=== PATIENT | female | born 1965 | race Asian ===

== ENCOUNTER 2016-10-17 16:56 | Emergency (ER) | payer OTHER ==
[~2016-10-17] VITALS: Ht 154.9 cm; Wt 65.0 kg
[~2016-10-17 16:56] MED LIST: FERR240T6 PO; HYDR25TA PO; LISI-618 PO; LORA10TA7 PO; OMEP10SU PO; SIMV10TA6 PO
[2016-10-17 17:22] LABS: GLUCOSE,POINT OF CARE 115 MG/DL (70-110)
[2016-10-17 17:27] LABS: BASOPHILS % (AUTO) 0.1 % (0.0-2.0); EOSINOPHILS % (AUTO) 0.5 % (1.0-6.0); HEMATOCRIT 42.8 % (36-46); HEMOGLOBIN 14.3 g/dL (12.0-16.0); LYMPHOCYTES # (AUTO) 1.8 K/uL (1.0-4.8); LYMPHOCYTES % (AUTO) 12.1 % (22.0-44.0); MEAN CORPUSCULAR HEMOGLOBIN 29.2 pg (26.0-34.0); MEAN CORPUSCULAR HGB CONC 33.5 G/dL (31.0-37.0); MEAN CORPUSCULAR VOLUME 87 fL (80-100); MONOCYTES # (AUTO) 0.4 K/uL (0.1-1.0); MONOCYTES % (AUTO) 2.6 % (2.0-9.0); NEUTROPHILS % (AUTO) 84.7 % (40.0-70.0); PLATELET COUNT (AUTO) 249 K/uL (150-450); RED BLOOD CELL COUNT(AUTO) 4.91 MIL/uL (4.00-5.20); RED CELL DISTRIBUTION WIDTH 12.8 % (11.5-14.5); WHITE BLOOD COUNT (AUTO) 15.3 K/uL (4.5-11.0)
[2016-10-17] MEDS ORDERED: 0.9% SODIUM CHLORIDE 10 ML SYRINGE IVP PRN (17:30)
[2016-10-17 17:44] LABS: PROTHROMBIN TIME 10.1 SEC (9.4-11.6)
[2016-10-17 17:58] LABS: B-TYPE NATRIURETIC PEPTIDE 21 pg/mL (0-100)
[2016-10-17 18:07] LABS: ALANINE AMINOTRANSFERASE 26 U/L (12-78); ALBUMIN 3.8 g/dL (3.4-5.0); ANION GAP 10 mmol/L (8-16); ASPARTATE AMINOTRANSFERASE 19 U/L (15-37); BILIRUBIN,TOTAL 0.5 mg/dL (0.1-1.0); CALCIUM, TOTAL 8.9 mg/dL (8.8-10.5); CARBON DIOXIDE 30 mmol/L (22-29); CHLORIDE 101 mmol/L (98-107); CREATINE KINASE, TOTAL 96 U/L (26-192); CREATININE 0.98 mg/dL (0.60-1.30); GLOMERULAR FILTR. RATE CALC 60 mL/min (>60); SODIUM SERUM 141 mmol/L (136-145); TOTAL PROTEIN, SERUM 8.3 g/dL (6.4-8.2); UREA NITROGEN, BLOOD 12 mg/dL (7-18)
[2016-10-17 18:13] LABS: CREATINE KINASE MB < 0.5 ng/mL (0-5); POTASSIUM 2.9 mmol/L (3.5-5.1)
[2016-10-17] MEDS ORDERED: POTASSIUM CHLORIDE 20 MEQ ER TABLET PO ONE (19:15)
[2016-10-17 19:28] LABS: APPEARANCE,URINE CLEAR (CLEAR); GLUCOSE, URINE (UA) NEGATIVE (NEGATIVE); KETONES,URINE NEGATIVE (NEGATIVE); LEUKOCYTE ESTERASE ,URINE NEGATIVE (NEGATIVE); PH,URINE 7.5 (5.0-8.0); PROTEIN,URINE NEGATIVE (NEGATIVE)
[2016-10-17 19:32] LABS: ADD UA MICROSCOPIC YES; OCCULT BLOOD,URINE MODERATE (NEGATIVE); RBC,URINE 26-50 /HPF (0-2); SQUAMOUS EPITHELIAL CELL,UR Few /LPF (None Seen); WBC,URINE 0-2 /HPF (0-5)
[2016-10-17 20:18] VITALS: BP 135/80
== END 2016-10-17 20:30 | disposition home or self-care (01) ==
LOC: EMS 16:57
DX: N39.0 Urinary tract infection, site not specified (principal); B34.9 Viral infection, unspecified; R55 Syncope and collapse; I10 Essential (primary) hypertension; I63.9 Cerebral infarction, unspecified; Z88.0 Allergy status to penicillin; Z88.1 Allergy status to other antibiotic agents
CPT/HCPCS: 82962; 93005; 99285

== ENCOUNTER 2020-04-04 06:29 | Day surgery (SDC) | payer OTHER ==
[~2020-04-04] VITALS: Ht 152.4 cm; Wt 61.8 kg
[~2020-04-04 06:29] MED LIST changes: +ALLO100T50 PO; +ASPI-728 PO; +CLOP-31 PO; +COLC0.6T73 PO; +FAMO20 PO; -FERR240T6 PO; +GABA-1216 PO; -LORA10TA7 PO; -OMEP10SU PO; -SIMV10TA6 PO; +SIMV10TA97 PO; +SODIUM CHLORIDE 0.9% 1,000 ML ONE; +TRIA454O5 TP
[2020-04-04] MEDS ORDERED: SODIUM CHLORIDE 0.9% 1,000 ML IV ONE (06:30)
[2020-04-04] MEDS ORDERED: MIDAZOLAM HCL 2 MG/2 ML VIAL ONE (07:50)
[2020-04-04] MEDS ORDERED: FentaNYL CITRATE-PF 100 MCG/2 ML VIAL ONE (07:50)
[2020-04-04] MEDS ORDERED: MethylPREDNISolone SOD SUCC 125 MG/2 ML VIAL IVP ONE (08:45)
[2020-04-04] MEDS ORDERED: MethylPREDNISolone SOD SUCC 125 MG/2 ML VIAL ONE (09:08)
[2020-04-04] MEDS ORDERED: LIDOCAINE 2% 30 ML JELLY ONE (17:13)
[2020-04-04] MEDS ORDERED: BENZOCAINE 20% 50 MCG/SPRAY 57 GM ONE (17:13)
[2020-04-04] MEDS ORDERED: ALBUTEROL SULFATE 2.5 MG/0.5 ML NEB SOLUTION NEB ONE (17:13)
[2020-04-04] MEDS ORDERED: LIDOCAINE 4% 50 ML SOLUTION ONE (17:13)
[2020-04-04] MEDS ORDERED: OXYGEN THERAPY IH SCH (20:00)
== END 2020-04-04 10:20 | disposition home or self-care (01) ==
LOC: SURGERY 06:29
PROVIDERS: ATTEND Internal Medicine Critical Care Medicine
DX: B37.0 Candidal stomatitis (principal); J98.4 Other disorders of lung; M19.90 Unspecified osteoarthritis, unspecified site; E78.00 Pure hypercholesterolemia, unspecified; Z86.73 Personal history of transient ischemic attack (TIA), and cerebral infarction without residual deficits
CPT/HCPCS: 31623; 31624; 71045; 87015; 87070; 87077; 87101; 87205; 87206; 87220; 87635; 88108; 88312; J2250; J2930; J3010; J7030; J7613; Z7610

== ENCOUNTER 2022-10-18 18:24 | Inpatient (IN) | payer MEDICARE, OTHER ==
[~2022-10-18] VITALS: Ht 157.5 cm; Wt 61.4 kg
[~2022-10-18 18:24] MED LIST changes: +ASPI-1450 PO; -ASPI-728 PO; -CLOP-31 PO; +CLOP75TA60 PO; -LISI-618 PO; +LISI20TA24 PO; -SODIUM CHLORIDE 0.9% 1,000 ML ONE
[2022-10-18 18:43] LABS: COVID AG,FIA SOURCE NASAL SWAB
[2022-10-18] MEDS ORDERED: ACETAMINOPHEN 325 MG TABLET PO ONE (21:15)
[2022-10-18 21:29] LABS: BASOPHILS % (AUTO) 0.4 % (0.0-2.0); EOSINOPHILS % (AUTO) 0 % (1.0-6.0); HEMATOCRIT 43.5 % (36-46); HEMOGLOBIN 14.9 g/dL (12.0-16.0); LYMPHOCYTES # (AUTO) 1.6 K/uL (1.0-4.8); LYMPHOCYTES % (AUTO) 16.6 % (22.0-44.0); MEAN CORPUSCULAR HEMOGLOBIN 30.4 pg (26.0-34.0); MEAN CORPUSCULAR HGB CONC 34.2 G/dL (31.0-37.0); MEAN CORPUSCULAR VOLUME 89 fL (80-100); MONOCYTES # (AUTO) 0.7 K/uL (0.1-1.0); MONOCYTES % (AUTO) 6.9 % (2.0-9.0); NEUTROPHILS # (AUTO) 7.4 K/uL (1.8-7.7); NEUTROPHILS % (AUTO) 76.1 % (40.0-70.0); PLATELET COUNT (AUTO) 153 K/uL (150-450); RED CELL DISTRIBUTION WIDTH 13.8 % (11.5-14.5)
[2022-10-18 21:31] LABS: CALCIUM, TOTAL 8.5 mg/dL (8.8-10.5); CREATININE 1.22 mg/dL (0.60-1.30); POTASSIUM 3.5 mmol/L (3.5-5.1)
[2022-10-18 21:37] LABS: ALBUMIN 4.1 g/dL (3.4-5.0); BILIRUBIN,TOTAL 0.6 mg/dL (0.1-1.0); TOTAL PROTEIN, SERUM 8.9 g/dL (6.4-8.2)
[2022-10-18] MEDS ORDERED: ONDANSETRON HCL 4 MG/2 ML VIAL IVP PRN (22:45)
[2022-10-18] MEDS: HEPARIN SODIUM,PORCINE 5,000 UNITS/ML VIAL SQ SCH (23:10)
[2022-10-18] MEDS ORDERED: SODIUM CHLORIDE 0.9% 1,000 ML IV ONE (23:30)
[2022-10-19 04:15] VITALS: BP 113/63
[2022-10-19 07:28] VITALS: BP 110/59
[2022-10-19 08:03] LABS: BASOPHILS % (AUTO) 0.4 % (0.0-2.0); EOSINOPHILS % (AUTO) 0 % (1.0-6.0); HEMATOCRIT 39.8 % (36-46); HEMOGLOBIN 13.5 g/dL (12.0-16.0); LYMPHOCYTES # (AUTO) 1.9 K/uL (1.0-4.8); LYMPHOCYTES % (AUTO) 24.5 % (22.0-44.0); MEAN CORPUSCULAR HEMOGLOBIN 30.1 pg (26.0-34.0); MEAN CORPUSCULAR HGB CONC 33.8 G/dL (31.0-37.0); MEAN CORPUSCULAR VOLUME 89 fL (80-100); MONOCYTES # (AUTO) 0.6 K/uL (0.1-1.0); MONOCYTES % (AUTO) 8.4 % (2.0-9.0); NEUTROPHILS # (AUTO) 5.1 K/uL (1.8-7.7); NEUTROPHILS % (AUTO) 66.7 % (40.0-70.0); PLATELET COUNT (AUTO) 143 K/uL (150-450); RED BLOOD CELL COUNT(AUTO) 4.48 MIL/uL (4.00-5.20); RED CELL DISTRIBUTION WIDTH 13.7 % (11.5-14.5)
[2022-10-19 08:05] LABS: CALCIUM, TOTAL 8.1 mg/dL (8.8-10.5); CREATININE 1.04 mg/dL (0.60-1.30); MAGNESIUM 2.4 mg/dL (1.80-2.40); POTASSIUM 3.1 mmol/L (3.5-5.1)
[2022-10-19] MEDS: COLCHICINE 0.6 MG TABLET PO SCH (08:30)
[2022-10-19] MEDS: GABAPENTIN 100 MG CAPSULE PO SCH (08:31)
[2022-10-19] MEDS: HEPARIN SODIUM,PORCINE 5,000 UNITS/ML VIAL SQ SCH ×3 (08:31→23:56)
[2022-10-19] MEDS: FAMOTIDINE 20 MG TABLET PO SCH (08:31)
[2022-10-19] MEDS: SIMVASTATIN 20 MG TABLET PO SCH (08:32)
[2022-10-19] MEDS: ACETAMINOPHEN 325 MG TABLET PO PRN ×2 (08:32→23:59)
[2022-10-19] MEDS: ALLOPURINOL 100 MG TABLET PO SCH (08:32)
[2022-10-19] MEDS: LISINOPRIL 20 MG TABLET PO SCH (08:32)
[2022-10-19] MEDS: CLOPIDOGREL BISULFATE 75 MG TABLET PO SCH (08:32)
[2022-10-19] MEDS: ASPIRIN 81 MG CHEWABLE TABLET PO SCH (08:32)
[2022-10-19] MEDS: TRIAMCINOLONE 0.025% 15 GM OINTMENT TP SCH (08:34)
[2022-10-19] MEDS ORDERED: REMDESIVIR 200 MG in SODIUM CHLORIDE 0.9% 250 ML IV ONE (12:30)
[2022-10-19] MEDS ORDERED: FLUT16H NASAL (12:32)
[2022-10-19] MEDS ORDERED: AMLO2.5T29 PO (12:32)
[2022-10-19] MEDS ORDERED: ASPI-1522 PO (12:32)
[2022-10-19] MEDS ORDERED: SIMV-260 PO (12:32)
[2022-10-19] MEDS ORDERED: CLOB15CR41 TP (12:32)
[2022-10-19] MEDS ORDERED: GABA-1181 PO (12:32)
[2022-10-19 15:33] VITALS: BP 109/67
[2022-10-19] MEDS ORDERED: POTASSIUM CHLORIDE 20 MEQ ER TABLET PO ONE (16:00)
[2022-10-19] MEDS: BENZONATATE 100 MG CAPSULE PO PRN (20:35)
[2022-10-19 20:55] VITALS: BP 121/73
[2022-10-19 22:42] LABS: INFLUENZA TYPE A NEGATIVE FOR TYPE A (NEGATIVE); INFLUENZA TYPE B NEGATIVE FOR TYPE B (NEGATIVE)
[2022-10-20 04:58] VITALS: BP 117/68
[2022-10-20] MEDS: HEPARIN SODIUM,PORCINE 5,000 UNITS/ML VIAL SQ SCH ×4 (08:00→23:24)
[2022-10-20 08:06] VITALS: BP 103/69
[2022-10-20 08:14] LABS: BASOPHILS % (AUTO) 0.4 % (0.0-2.0); EOSINOPHILS % (AUTO) 0.1 % (1.0-6.0); HEMOGLOBIN 13.9 g/dL (12.0-16.0); LYMPHOCYTES # (AUTO) 2.1 K/uL (1.0-4.8); LYMPHOCYTES % (AUTO) 28.1 % (22.0-44.0); MEAN CORPUSCULAR HEMOGLOBIN 30.7 pg (26.0-34.0); MEAN CORPUSCULAR HGB CONC 34.7 G/dL (31.0-37.0); MEAN CORPUSCULAR VOLUME 89 fL (80-100); MONOCYTES # (AUTO) 0.5 K/uL (0.1-1.0); MONOCYTES % (AUTO) 7.3 % (2.0-9.0); NEUTROPHILS # (AUTO) 4.8 K/uL (1.8-7.7); NEUTROPHILS % (AUTO) 64.1 % (40.0-70.0); PLATELET COUNT (AUTO) 146 K/uL (150-450); RED BLOOD CELL COUNT(AUTO) 4.51 MIL/uL (4.00-5.20); RED CELL DISTRIBUTION WIDTH 13.8 % (11.5-14.5)
[2022-10-20 08:22] LABS: CALCIUM, TOTAL 8.1 mg/dL (8.8-10.5); CREATININE 0.99 mg/dL (0.60-1.30); POTASSIUM 3.8 mmol/L (3.5-5.1)
[2022-10-20] MEDS: GABAPENTIN 100 MG CAPSULE PO SCH (09:18)
[2022-10-20] MEDS: CLOPIDOGREL BISULFATE 75 MG TABLET PO SCH (09:19)
[2022-10-20] MEDS: LISINOPRIL 20 MG TABLET PO SCH (09:19)
[2022-10-20] MEDS: ASPIRIN 81 MG CHEWABLE TABLET PO SCH (09:19)
[2022-10-20] MEDS: DEXAMETHASONE 4 MG TABLET PO SCH (09:19)
[2022-10-20] MEDS: SIMVASTATIN 20 MG TABLET PO SCH (09:20)
[2022-10-20] MEDS: COLCHICINE 0.6 MG TABLET PO SCH (09:20)
[2022-10-20] MEDS: FAMOTIDINE 20 MG TABLET PO SCH (09:20)
[2022-10-20] MEDS: ALLOPURINOL 100 MG TABLET PO SCH (09:20)
[2022-10-20] MEDS: BENZONATATE 100 MG CAPSULE PO PRN ×2 (09:28→21:10)
[2022-10-20] MEDS: TRIAMCINOLONE 0.025% 15 GM OINTMENT TP SCH (09:31)
[2022-10-20] MEDS: REMDESIVIR 100 MG in SODIUM CHLORIDE 0.9% 250 ML IV SCH (14:16)
[2022-10-20 16:10] VITALS: BP 102/52
[2022-10-20 20:01] VITALS: BP 126/72
[2022-10-21 04:08] VITALS: BP 104/65
[2022-10-21 06:52] LABS: BASOPHILS % (AUTO) 0.2 % (0.0-2.0); EOSINOPHILS % (AUTO) 0 % (1.0-6.0); HEMATOCRIT 40.6 % (36-46); HEMOGLOBIN 14.1 g/dL (12.0-16.0); LYMPHOCYTES # (AUTO) 1.2 K/uL (1.0-4.8); LYMPHOCYTES % (AUTO) 9.9 % (22.0-44.0); MEAN CORPUSCULAR HGB CONC 34.8 G/dL (31.0-37.0); MEAN CORPUSCULAR VOLUME 89 fL (80-100); MONOCYTES # (AUTO) 0.5 K/uL (0.1-1.0); MONOCYTES % (AUTO) 4.3 % (2.0-9.0); NEUTROPHILS # (AUTO) 10.1 K/uL (1.8-7.7); PLATELET COUNT (AUTO) 161 K/uL (150-450); RED BLOOD CELL COUNT(AUTO) 4.56 MIL/uL (4.00-5.20); RED CELL DISTRIBUTION WIDTH 13.2 % (11.5-14.5)
[2022-10-21 07:11] LABS: NEUTROPHILS % (AUTO) 85.6 % (40.0-70.0)
[2022-10-21 07:31] LABS: ALANINE AMINOTRANSFERASE 69 U/L (12-78); ALBUMIN 3.4 g/dL (3.4-5.0); ALKALINE PHOSPHATASE 66 U/L (46-116); ANION GAP 10 mmol/L (8-16); ASPARTATE AMINOTRANSFERASE 57 U/L (15-37); BILIRUBIN,TOTAL 0.2 mg/dL (0.1-1.0); CALCIUM, TOTAL 8.8 mg/dL (8.8-10.5); CARBON DIOXIDE 24 mmol/L (22-29); CHLORIDE 104 mmol/L (98-107); CREATININE 0.92 mg/dL (0.60-1.30); GLOMERULAR FILTR. RATE CALC > 60 mL/min (>60); GLUCOSE,RANDOM 145 mg/dL (70-110); SODIUM SERUM 138 mmol/L (136-145); TOTAL PROTEIN, SERUM 8.2 g/dL (6.4-8.2); UREA NITROGEN, BLOOD 19 mg/dL (7-18)
[2022-10-21] MEDS: HEPARIN SODIUM,PORCINE 5,000 UNITS/ML VIAL SQ SCH ×2 (08:00→16:00)
[2022-10-21 08:49] VITALS: BP 116/71
[2022-10-21] MEDS: ALLOPURINOL 100 MG TABLET PO SCH (09:02)
[2022-10-21] MEDS: COLCHICINE 0.6 MG TABLET PO SCH (09:02)
[2022-10-21] MEDS: ASPIRIN 81 MG CHEWABLE TABLET PO SCH (09:02)
[2022-10-21] MEDS: DEXAMETHASONE 4 MG TABLET PO SCH (09:02)
[2022-10-21] MEDS: CLOPIDOGREL BISULFATE 75 MG TABLET PO SCH (09:03)
[2022-10-21] MEDS: SIMVASTATIN 20 MG TABLET PO SCH (09:03)
[2022-10-21] MEDS: GABAPENTIN 100 MG CAPSULE PO SCH (09:03)
[2022-10-21] MEDS: LISINOPRIL 20 MG TABLET PO SCH (09:03)
[2022-10-21] MEDS: TRIAMCINOLONE 0.025% 15 GM OINTMENT TP SCH (09:10)
[2022-10-21] MEDS: FAMOTIDINE 20 MG TABLET PO SCH (11:29)
[2022-10-21] MEDS: REMDESIVIR 100 MG in SODIUM CHLORIDE 0.9% 250 ML IV SCH (13:54)
[2022-10-21 16:59] VITALS: BP 112/78
[2022-10-21 20:44] VITALS: BP 121/78
[2022-10-21] MEDS: ACETAMINOPHEN 325 MG TABLET PO PRN (20:47)
[2022-10-22 06:13] VITALS: BP 139/80
[2022-10-22 07:59] LABS: BASOPHILS % (AUTO) 0.1 % (0.0-2.0); EOSINOPHILS % (AUTO) 0 % (1.0-6.0); HEMATOCRIT 37.7 % (36-46); LYMPHOCYTES # (AUTO) 1.4 K/uL (1.0-4.8); MEAN CORPUSCULAR HEMOGLOBIN 30.6 pg (26.0-34.0); MEAN CORPUSCULAR HGB CONC 34.4 G/dL (31.0-37.0); MEAN CORPUSCULAR VOLUME 89 fL (80-100); MONOCYTES # (AUTO) 0.5 K/uL (0.1-1.0); MONOCYTES % (AUTO) 3.2 % (2.0-9.0); NEUTROPHILS # (AUTO) 15.3 K/uL (1.8-7.7); PLATELET COUNT (AUTO) 184 K/uL (150-450); RED BLOOD CELL COUNT(AUTO) 4.24 MIL/uL (4.00-5.20); RED CELL DISTRIBUTION WIDTH 13.6 % (11.5-14.5)
[2022-10-22] MEDS: HEPARIN SODIUM,PORCINE 5,000 UNITS/ML VIAL SQ SCH ×3 (08:00→16:00)
[2022-10-22 08:05] LABS: ALANINE AMINOTRANSFERASE 68 U/L (12-78); ALBUMIN 3.4 g/dL (3.4-5.0); ALKALINE PHOSPHATASE 62 U/L (46-116); ANION GAP 10 mmol/L (8-16); ASPARTATE AMINOTRANSFERASE 46 U/L (15-37); BILIRUBIN,TOTAL 0.2 mg/dL (0.1-1.0); CALCIUM, TOTAL 8.5 mg/dL (8.8-10.5); CARBON DIOXIDE 22 mmol/L (22-29); CHLORIDE 105 mmol/L (98-107); CREATININE 0.87 mg/dL (0.60-1.30); GLOMERULAR FILTR. RATE CALC > 60 mL/min (>60); GLUCOSE,RANDOM 134 mg/dL (70-110); POTASSIUM 4.1 mmol/L (3.5-5.1); SODIUM SERUM 137 mmol/L (136-145); TOTAL PROTEIN, SERUM 7.5 g/dL (6.4-8.2); UREA NITROGEN, BLOOD 22 mg/dL (7-18)
[2022-10-22 08:28] LABS: NEUTROPHILS % (AUTO) 88.7 % (40.0-70.0)
[2022-10-22 08:35] VITALS: BP 131/56
[2022-10-22] MEDS: FAMOTIDINE 20 MG TABLET PO SCH (08:56)
[2022-10-22] MEDS: DEXAMETHASONE 4 MG TABLET PO SCH (08:57)
[2022-10-22] MEDS: GABAPENTIN 100 MG CAPSULE PO SCH (08:58)
[2022-10-22] MEDS: ASPIRIN 81 MG CHEWABLE TABLET PO SCH (08:58)
[2022-10-22] MEDS: CLOPIDOGREL BISULFATE 75 MG TABLET PO SCH (08:58)
[2022-10-22] MEDS: ALLOPURINOL 100 MG TABLET PO SCH (08:58)
[2022-10-22] MEDS: LISINOPRIL 20 MG TABLET PO SCH (08:58)
[2022-10-22] MEDS: COLCHICINE 0.6 MG TABLET PO SCH (08:58)
[2022-10-22] MEDS: SIMVASTATIN 20 MG TABLET PO SCH (08:58)
[2022-10-22] MEDS: TRIAMCINOLONE 0.025% 15 GM OINTMENT TP SCH (08:58)
[2022-10-22] MEDS: REMDESIVIR 100 MG in SODIUM CHLORIDE 0.9% 250 ML IV SCH (14:02)
[2022-10-22 15:42] VITALS: BP 143/76
[2022-10-22 20:40] VITALS: BP 149/92
[2022-10-22] MEDS: ACETAMINOPHEN 325 MG TABLET PO PRN (20:50)
[2022-10-23 04:16] VITALS: BP 121/73
[2022-10-23 07:40] LABS: ALANINE AMINOTRANSFERASE 62 U/L (12-78); ALBUMIN 3.3 g/dL (3.4-5.0); ALKALINE PHOSPHATASE 62 U/L (46-116); ANION GAP 10 mmol/L (8-16); ASPARTATE AMINOTRANSFERASE 34 U/L (15-37); BILIRUBIN,TOTAL 0.2 mg/dL (0.1-1.0); CALCIUM, TOTAL 8.4 mg/dL (8.8-10.5); CARBON DIOXIDE 24 mmol/L (22-29); CHLORIDE 107 mmol/L (98-107); CREATININE 0.85 mg/dL (0.60-1.30); GLOMERULAR FILTR. RATE CALC > 60 mL/min (>60); GLUCOSE,RANDOM 128 mg/dL (70-110); SODIUM SERUM 141 mmol/L (136-145); TOTAL PROTEIN, SERUM 7.4 g/dL (6.4-8.2); UREA NITROGEN, BLOOD 18 mg/dL (7-18)
[2022-10-23] MEDS ORDERED: DEXA4 PO (07:52)
[2022-10-23] MEDS: HEPARIN SODIUM,PORCINE 5,000 UNITS/ML VIAL SQ SCH ×2 (08:00)
[2022-10-23] MEDS: SIMVASTATIN 20 MG TABLET PO SCH (08:12)
[2022-10-23] MEDS: CLOPIDOGREL BISULFATE 75 MG TABLET PO SCH (08:12)
[2022-10-23] MEDS: FAMOTIDINE 20 MG TABLET PO SCH (08:12)
[2022-10-23] MEDS: ASPIRIN 81 MG CHEWABLE TABLET PO SCH (08:13)
[2022-10-23] MEDS: COLCHICINE 0.6 MG TABLET PO SCH (08:13)
[2022-10-23] MEDS: GABAPENTIN 100 MG CAPSULE PO SCH (08:13)
[2022-10-23] MEDS: LISINOPRIL 20 MG TABLET PO SCH (08:13)
[2022-10-23] MEDS: DEXAMETHASONE 4 MG TABLET PO SCH (08:13)
[2022-10-23] MEDS: ALLOPURINOL 100 MG TABLET PO SCH (08:14)
[2022-10-23] MEDS: TRIAMCINOLONE 0.025% 15 GM OINTMENT TP SCH (08:18)
[2022-10-23 10:19] VITALS: BP 142/83
[2022-10-23] MEDS: REMDESIVIR 100 MG in SODIUM CHLORIDE 0.9% 250 ML IV SCH (14:19)
== END 2022-10-23 16:00 | disposition home or self-care (01) | DRG 177 ==
LOC: EMS 18:25 → 6N 10-19 02:19
PROVIDERS: ADMIT Internal Medicine; ATTEND Internal Medicine
PROC: XW033E5 Introduction of Remdesivir Anti-infective into Peripheral Vein, Percutaneous Approach, New Technology Group 5 (ICD-10-PCS; principal; 2022-10-20)
DX: U07.1 COVID-19 (principal); J12.82 Pneumonia due to coronavirus disease 2019; J96.91 Respiratory failure, unspecified with hypoxia; E87.1 Hypo-osmolality and hyponatremia; I69.351 Hemiplegia and hemiparesis following cerebral infarction affecting right dominant side; I10 Essential (primary) hypertension; E88.09 Other disorders of plasma-protein metabolism, not elsewhere classified; K75.9 Inflammatory liver disease, unspecified; E78.5 Hyperlipidemia, unspecified; Z88.1 Allergy status to other antibiotic agents; Z28.310 Unvaccinated for COVID-19; Z79.82 Long term (current) use of aspirin; Z82.49 Family history of ischemic heart disease and other diseases of the circulatory system; Z79.02 Long term (current) use of antithrombotics/antiplatelets; Z88.0 Allergy status to penicillin; Z79.899 Other long term (current) drug therapy; Z88.8 Allergy status to other drugs, medicaments and biological substances
CPT/HCPCS: 71045; 80048; 80053; 83735; 83880; 84484; 85025; 85379; 87804; 93005; 99285; J1644; J7030; J7050; J8540; Q9967; 36415-L1; 36415-TC

== ENCOUNTER 2023-05-08 11:01 | Emergency (ER) | payer MEDICARE, OTHER ==
[~2023-05-08] VITALS: Ht 152.4 cm; Wt 61.5 kg
[~2023-05-08 11:01] MED LIST changes: +AMLO2.5T29 PO; -ASPI-1450 PO; +ASPI-1522 PO; +CLOB15CR41 TP; +DEXA4 PO; +FLUT16H NASAL; +GABA-1181 PO; -GABA-1216 PO; -HYDR25TA PO; +SIMV-260 PO; -SIMV10TA97 PO; -TRIA454O5 TP
[2023-05-08 11:09] VITALS: TEMP 98
[2023-05-08] MEDS ORDERED: PredniSONE 20 MG TABLET PO ONE (11:45)
[2023-05-08] MEDS ORDERED: ACYCLOVIR 200 MG CAPSULE PO ONE (11:45)
[2023-05-08] MEDS ORDERED: PRED-554 PO (12:56)
[2023-05-08] MEDS ORDERED: ACYC-138 PO (12:56)
[2023-05-08 14:32] VITALS: BP 147/85; PULSE 88; RESP 16
== END 2023-05-08 14:38 | disposition home or self-care (01) ==
LOC: EMS 11:05
DX: G51.0 Bell's palsy (principal); I10 Essential (primary) hypertension; Z88.0 Allergy status to penicillin; Z88.8 Allergy status to other drugs, medicaments and biological substances
CPT/HCPCS: 99284; 70450; 82962; J7512